=== PATIENT | female | born 2000 | race Caucasian/White ===

== ENCOUNTER 2018-07-30 15:45 | Emergency (ER) | payer OTHER, SELFPAY ==
[2018-07-30 16:18] VITALS: PULSE 120; RESP 2; TEMP 37; O2SAT 100
--- NOTE | 2018-07-30 16:51 | ED.GENADUL_ITS ---
Discharge Plan Disposition Patient Disposition: HOME Condition: Stable Discharge Details Chief Complaint: Sorethroat Clinical Impression: Acute streptococcal pharyngitis Primary Care Provider: Unknown,Unknown ED Provider: Anuja Bradley Home Meds and New Rx's Prescriptions: New amoxicillin 500 mg tablet 500 mg PO BID 10 Days Qty: 20 RF: 0 Discharge Instructions Instructions: Pharyngitis (ED), Strep Throat (ED) Additional Instructions: Alternate Tylenol and Motrin as needed and directed for pain. Drink plenty of fluids and get plenty of rest. Gargle with salt water. Follow-up with your primary care doctor next week for reevaluation. Return immediately to the emergency department with any worsening or new concerning symptoms. Discharge Data Discharge Physician: Anuja Bradley Medical Decision Making 18-year-old female presents with sore throat and left ear pain since last night, worse today. Denies known fever. Patient is on oral contraceptives. She denies chance of . She states her last menstrual period was 1 year ago. Heart rate tachycardic at 120, remainder vitals within normal limits. Afebrile. Patient appears nontoxic. Posterior pharynx erythematous, with exudates. Uvula midline. No peritonsillar abscess. No significant tonsillar swelling. \\ No drooling, no trismus, no lymphadenopathy, no submandibular swelling. Lungs clear to auscultation. Abdomen soft and nontender. Rapid strep positive. Patient offered antibiotic prescription versus Bicillin injection and she would prefer the antibiotic prescription. As it is Wednesday evening and pharmacies are closed, will give 1 dose of amoxicillin here as well as a dose for home and prescription. Due to the difficulty and pain with swallowing, will give a dose of Decadron here. Patient instructed to alternate Tylenol Motrin, drink plenty of fluids, get plenty of rest, follow with primary care doctor return here if worse. HPI General Mode of arrival: ambulatory . Date/Time Provider Initiated Documentation: 07/30/18 16:25 . Limitations to Documentation: no limitations . Information obtained by: patient . HPI Narrative: Patient is a 18-year-old female presents the ED with complaint of sore throat and left ear pain since last night, worse today. She admits to difficulty and pain with swallowing. She denies any known fever, vomiting, diarrhea, coughing or shortness of breath. Her last dose of Advil was 2 hours ago. Her last dose of Tylenol was this morning. Related Data Home Medications Medication Instructions Recorded Confirmed amoxicillin 500 mg PO BID 10 Days #20 tab 07/30/18 Previous Rx's Medication Instructions Recorded amoxicillin 500 mg PO BID 10 Days #20 tab 07/30/18 Allergies Allergy/AdvReac Type Severity Reaction Status Date / Time Sulfa (Sulfonamide Allergy Unverified 07/30/18 16:18 Antibiotics) General Stated Complaint: Sorethroat SAY: 4 Review of Systems Review of Systems All systems reviewed & are unremarkable except as noted in HPI and below Constitutional Reports as per HPI, Denies chills and Denies fever(s) Eyes Denies blurry vision ENT Denies dizziness, Reports otalgia, Reports sore throat and Denies throat swelling Cardiovascular Denies chest pain and Denies dyspnea Respiratory Denies cough and Denies dyspnea Gastrointestinal Denies abdominal pain, Denies diarrhea and Denies vomiting Genitourinary Denies hematuria and Denies dysuria Musculoskeletal Denies back pain and Denies numbness Integumentary/Breasts Denies lesions and Denies rash Neurologic Denies dizziness, Denies focal weakness and Denies numbness Allergic/Immunologic Denies throat swelling PFSH Medical History No significant past medical history (Acute) Surgical History H/O wisdom tooth extraction (Acute) H/O arthroscopic knee surgery (Chronic) Social History Smoking/Tobacco Use Status: Never Alcohol Intake: never Drug use: Never Do you feel safe at home: Yes Do you feel safe in your relationship?: Yes Exam Const General: cooperative and healthy appearing Orientation: alert and awake HENRI Head: normal to inspection Ears: hearing grossly normal bilaterally, external ears normal and TM's normal bilaterally General nose exam: external nose normal Face and sinus: normal facial exam and sinuses nontender Mouth: oral mucosae normal, no drooling and no trismus Teeth and gingiva: dentition normal Throat: uvula midline, no peritonsillar masses, posterior oropharynx abnormal edema, erythema and exudates and no uvular edema Eyes General: appearance normal, both eyes and all related structures Eyelids: eyelids normal EOM: EOM intact bilaterally Neck Neck: normal visual inspection Lymphatic: no lymphadenopathy noted Chest Chest: normal inspection of the chest Resp Effort & Inspection: normal respiratory effort and able to speak in complete sentences Auscultation: clear to auscultation bilaterally Cardio Rate: regular rate Rhythm: regular rhythm GI Inspection: normal to inspection Palpation: soft, not firm, no guarding, no hepatosplenomegaly, no masses and nontender Auscultation: normal bowel sounds Skin General skin exam: no rashes or lesions noted Neuro General: alert and awake Cognition: normal cognition Speech: speech normal Gait: normal gait Motor: muscle tone normal throughout Sensory Exam: no sensory deficits noted Extrem General: normal to inspection, full ROM, normal capillary refill and no edema Psych Appearance: grossly normal Mental Status: mental status grossly normal Speech and Movement: speech and movement normal Affect: normal affect Thought Process: normal Course Vital Signs Temperature 98.6 F 07/30/18 16:18 Pulse 120 H 07/30/18 16:18 Respiratory Rate 2 L 07/30/18 16:18 Pulse Oximetry 100 07/30/18 16:18 Temperature 98.6 F 07/30/18 16:18 Temperature Source Temporal Artery Scan 07/30/18 16:18 Pulse 120 H 07/30/18 16:18 Respiratory Rate 2 L 07/30/18 16:18 Respiratory Effort Non-Labored 07/30/18 16:18 Blood Pressure Position Sitting 07/30/18 16:18 Pulse Oximetry 100 07/30/18 16:18 Oxygen Delivery Method Room Air 07/30/18 16:18 Oxygen Flow Rate 0 07/30/18 16:18 Pain Level 7 07/30/18 16:18 Lab/Test Results Lab/Test Results: POC Strep Test-MILLA(Rapid) Start: 07/30/18 16:20 Freq: Status: Active Protocol: Document 07/30/18 16:31 TB (Rec: 07/30/18 16:31 TB [id number]) Strep test-MILLA(Rapid)-POC POC-Strep test-MILLA (Rapid) Positive POC-Strep test-MILLA (Rapid) Positive
[2018-07-30] MEDS: Dexamethasone 10 MG/ML VIAL PO (16:54)
[2018-07-30] MEDS: Amoxicillin 500 MG CAP PO ×2 (16:54)
[2018-07-30 16:59] VITALS: PULSE 114; RESP 18; O2SAT 100
== END 2018-07-30 16:59 | disposition home or self-care (01) ==
PROVIDERS: Emergency Provider Physician Assistant
DX: J02.0 Streptococcal pharyngitis (principal)
CPT/HCPCS: 87880; 99283; J1100

== ENCOUNTER 2019-02-24 20:53 | Outpatient (REF) | payer OTHER, SELFPAY ==
[2019-02-24 20:17] LABS: Bilirubin Negative (Negative); Blood Small (Negative); Clarity Sl Cloudy (Clear); Glucose Negative (Negative); Ketones 15 mg/dL (Negative); Leukocyte Esterase Negative (Negative); Nitrite Negative (Negative); Specific Gravity 1.025 (1.005-1.025); Urobilinogen 0.2 EU/dL (Up TO 0.2)
[2019-02-24 21:10] LABS: Bacteria Moderate HPF (Negative); C & S Indicated? Yes; Casts Negative LPF (Negative); Crystals Negative HPF (Negative); Epithelial Cells Few HPF (Negative); Mucus Negative (Negative); Other Cells Negative (Negative)
== END 2019-02-24 21:13 ==
LOC: LBN 20:53
PROVIDERS: Visit Provider Physician Assistant
DX: R30.0 Dysuria (principal)
CPT/HCPCS: 87077; 81003; 81015; 87086; 87186

== ENCOUNTER 2023-09-27 16:38 | Inpatient (IN) | payer MEDICAID, SELFPAY ==
[2023-09-27] VITALS (48 sets, daily range): BP systolic 68–163; BP diastolic 37–140; PULSE 111–156; RESP 3–30; TEMP 37.8–38.5; O2SAT 96–100
--- NOTE | 2023-09-27 17:00 | RT.EKG_ITS ---
APPROVED REPORT Exam: Resting ECG Reason for Exam: Tachycardia Patient Location: E HR:134 bpm ECG Measurements Heart Rate 134 AXIS MI 117 P 78 QRSd 78 QRS 81 QT 284 T -4 QTc 424 Conclusion Sinus tachycardia...rate> 99 sinus tachycardia, normal axis, normal intervals, S1Q3T3
--- NOTE | 2023-09-27 17:15 | DI.CT_ITS ---
Exam(s) CT CHEST PE CTA EXAM: CT CHEST PE CTA CLINICAL HISTORY: cough, tachycardia, exogenous estrogen. TECHNIQUE: Imaging Protocol: Axial CT angiography was performed with multi-slice acquisition and mu lti-planar and/or 3D reconstructions. CONTRAST MATERIAL: Intravenous: Omnipaque 350 contrast volume:65 mL COMPARISON: No exams were available for comparison FINDINGS: The examination is limited due to patient motion artifact. Tracheobronchial tree: Patent where visualized. There is internal debris seen in the bronchi in the a wendy of consolidation in the right lower lobe. Pulmonary parenchyma: There is a moderate size consolidation involving the right lower lobe. Airspac e opacities are also seen in the left upper lobe. No architectural distortion. Pulmonary Arteries: No evidence of filling defect to suggest pulmonary emboli. Mediastinum and Ratna: No dominant adenopathy or fluid collection. The esophagus is unremarkable. Th ere is soft tissue in the anterior mediastinum consistent with residual thymic tissue. Visualized thyroid gland: Unremarkable. Pleura: No effusion or pneumothorax. Heart: The heart is not dilated. No coronary artery calcifications are seen. No pericardial effusion. Aorta: Thoracic aorta non-dilated. No evidence of dissection. Upper abdomen: Unremarkable. Soft tissues: Unremarkable. Bones: Within normal limits for the patient's age. IMPRESSION: 1. No evidence of pulmonary embolism, thoracic aortic dissection or aneurysm. 2. Infiltrates involving the right lower lobe and left upper lobe suspicious for pneumonia. RADIATION DOSE DELIVERED: 375.38mGy.cm Total DLP DATA REPOSITORY: All CT scans at this facility are submitted to the National Radiology Data Registry (NRDR) Dose Index Registry (DIR) with the [employer] (A[employer]). RADIATION OPTIMIZATION: All CT scans at this facility use at least one of these dose optimization te chniques: automated exposure control; mA and/or kV adjustment per patient size (includes targeted exa ms where dose is matched to clinical indication); or iterative reconstruction.
--- NOTE | 2023-09-27 17:29 | ED.GENADUL_ITS ---
Discharge Plan Discharge Details Chief Complaint: RespSymp Primary Care Provider: Unknown,Unknown ED Provider: Paul Almeida Home Meds and New Rx's Prescriptions: No Action control HPI General Date/Time Provider Initiated Documentation: 09/27/23 16:49 . HPI Narrative: 23-year-old female presents with several days of fever productive cough chest t ightness and pain with deep breath, has had fevers as high as 103 at home intermittently improving with Tylenol and Motrin however never going below 101; worsening symptoms over the last day. Patient is on exogenous estrogen control, denies leg pain or swelling denies history of thromboembolic disease Related Data Home Medications Medication Instructions Recorded Confirmed control 09/27/23 Allergies Allergy/AdvReac Type Severity Reaction Status Date / Time Sulfa (Sulfonamide Allergy Skin Rash Verified 09/27/23 16:49 Antibiotics) General Stated Complaint: RespSymp SAY: 3 Review of Systems Narrative: Review of Systems Constitutional: Fatigue, fever Eyes: negative ENT: negative Cardiovascular: negative Respiratory: Cough Gastrointestinal: negative : negative Musculoskeletal: negative Skin: negative Neurologic: negative Psych: negative Exam Narrative Exam Narrative: Physical Examination General: alert, awake, cooperative, resting comfortably, no acute distress HEENT: normocephalic, atraumatic; PERRL, EOM intact, conjunctiva normal; no nasal discharge; moist mucous membranes, oral and pharyngeal mucosa normal, tolerating secretions Neck: supple, trachea midline; full ROM Chest: normal to inspection Respiratory: Tachypneic, speaking in full sentences, rhonchorous breath sounds mid and lower right lung field posteriorly Cardiac: Tachycardia, regular rhythm, S1S2 intact, no murmurs rubs or gallops GI: abdomen soft, non-tender, non-distended; no palpable mass or hepatosplenomegaly Skin: no lesions, rashes or trauma appreciated Neuro: AAOx3, normal speech, moving all extremities Extremities: No peripheral edema Psych: Appropriate mood and affect Course Vital Signs Vital signs: Vital Signs Temperature 38.5 C H 09/27/23 16:44 Pulse 156 H 09/27/23 16:44 Respiratory Rate 22 09/27/23 16:44 Blood Pressure 143/65 H 09/27/23 16:44 Pulse Oximetry 98 09/27/23 16:44 Temperature 38.5 C H 09/27/23 16:44 Temperature Source Temporal Artery Scan 09/27/23 16:44 Pulse 156 H 09/27/23 16:44 Respiratory Rate 22 09/27/23 16:44 Respiratory Effort Normal, Non-Labored 09/27/23 16:49 Blood Pressure 143/65 H 09/27/23 16:44 Blood Pressure Position Sitting 09/27/23 16:44 Pulse Oximetry 98 09/27/23 16:44 Oxygen Delivery Method Room Air 09/27/23 16:44 Oxygen Flow Rate 0 09/27/23 16:44 Pain Level 5 09/27/23 16:44 Lab/Test Results Lab/Test Results: 09/27/23 17:15 Blood Blood Culture - Pending 09/27/23 17:15 Blood Blood Culture - Pending Medical Decision Making 23-year-old female presents with shortness of breath productive cough chest congestion over the past several days as well as intermittent high-grade fever refractory to antipyretics, notably tachycardic on arrival fever 38.5 normotensive normoxic speaking full sentences however tachypneic rhonchorous breath sounds mid and inferior lung gil right side, no peripheral edema, patient is on exogenous estrogen no history of thromboembolic disease, sinus tachycardia on EKG with S1Q3T3 pattern. High clinical suspicion for bacterial pneumonia given fever productive cough shortness of breath however must also keep PE on differential given exogenous estrogen tachycardia and EKG findings. Will start empiric antibiotics ceftriaxone azithromycin, steroids nebulized albuterol, fluids, will draw blood cultures basic labs, will obtain CT chest. Disposition pending reassessment of patient if vital signs do not improve will need admission Quality:[facility] Health Related Social Needs: No Data to Display [facility] Medical History (Updated 07/30/18 @ 16:46 by Anuja Bradley DO) No significant past medical history Surgical History H/O wisdom tooth extraction H/O arthroscopic knee surgery Social History Smoking/Tobacco Use Status: Never Smoking risk assessment performed?: Yes Alcohol Intake: never Drug use: Never Do you feel safe at home: Yes Do you feel safe in your relationship?: Yes
[2023-09-27 18:05] LABS: Abs Immature Grans 0.14 10^3/uL (0.0-0.06); HGB 11.9 g/dL (11.2-15.7); MCHC 33.1 % (32.0-36.0); MCV 82 fL (80-95); MPV 9.2 fL (8.0-11.0); Platelet Count 240 10^3/uL (130-400); RBC 4.41 10^6/uL (3.93-5.22); RDW 12.6 % (11.7-14.6); RDW-SD 37.9 fL
[2023-09-27] MEDS: Albuterol 2.5 MG/3 ML INH SOLN VIAL UPD (18:07)
[2023-09-27] MEDS: cefTRIAXone 1 GM/50 ML BAG IVPB (18:08)
[2023-09-27] MEDS: Dexamethasone 10 MG/ML VIAL IVP (18:08)
[2023-09-27] MEDS: AZITHROMYCIN 500 MG in Normal Saline 250 ML 250 MG IVPB (18:10)
[2023-09-27] MEDS: Normal Saline 1,000 ML 1000 ML IV ×2 (18:11→20:40)
[2023-09-27 18:24] LABS: ALT 23 U/L (14-59); AST 17 U/L (15-37); Albumin 3.3 g/dL (3.4-5.0); Alkaline Phosphatase 67 U/L (46-116); Anion Gap 10.5 mmol/L (3-11); BUN 7 mg/dL (7-18); Bilirubin, Total 0.5 mg/dL (0.2-1.0); CO2 20.5 mmol/L (21.0-32.0); Calcium 8.7 mg/dL (8.5-10.1); Chloride 102 mmol/L (98-107); Estimated GFR 80.18 (mL/min/1.73m2); Glucose 197 mg/dL (74-106); Potassium 3.3 mmol/L (3.5-5.1); Sodium 133 mmol/L (136-145); Total Protein 7.4 g/dL (6.4-8.2)
[2023-09-27 18:30] LABS: HCG Quant, Pregnancy 1 mIU/mL (1-3)
[2023-09-27 18:32] LABS: Absolute Lymphocyte Count 1.11 10^3/uL (1.2-3.4); Absolute Monocyte Count 0.47 10^3/uL (0.1-0.8); Absolute Neutrophil Count 14.06 10^3/uL (1.2-6.7); Bands % 19 %; Diff Comment Manual Differential; Metamyelocytes % 1; RBC Morphology Normal
[2023-09-27] MEDS: Omnipaque 350 MG/ML 100 ML BTL IJ (19:22)
[2023-09-27] MEDS: Normal Saline Flush 10 ML SYR IVP (19:23)
[2023-09-27] MEDS: Normal Saline - Diluent 50 ML VIAL IJ (19:24)
[2023-09-27 20:27] LABS: COVID-19 PCR Negative (Negative); Influenza A PCR Negative (Negative); Influenza B PCR Negative (Negative); RSV PCR Negative (Negative)
[2023-09-27 20:29] LABS: Source NASOPHARYNX
--- NOTE | 2023-09-27 20:37 | DI.VRAD_ITS ---
PROCEDURE INFORMATION: Exam: CTA Chest With Contrast Exam date and time: 09/27/2023 7:28 PM Age: 23 years old Clinical indication: Cough and other: Tachycardia; Patient HX: Cough, tachycardia, exogenous estrogen TECHNIQUE: Imaging protocol: Computed tomographic angiography of the chest with contrast. Exam focused on the arteries. 3D rendering (Not supervised by radiologist): MIP and/or 3D reconstructed images were created by the technologist. Radiation optimization: All CT scans at this facility use at least one of these dose optimization techniques: automated exposure control; mA and/or kV adjustment per patient size (includes targeted exams where dose is matched to clinical indication); or iterative reconstruction. Contrast material: OMNIPAQUE 350; Contrast volume: 65 ml; Contrast route: INTRAVENOUS (IV); COMPARISON: No relevant prior studies available. FINDINGS: Pulmonary arteries: No pulmonary embolism. Aorta: No aneurysm. No dissection. No stenosis in the thoracic aorta. Lungs: A dense consolidation is present in the right lower lobe, primarily in the posterior basilar segment. The left lung is clear. The lung architecture is normal. There is no significant central endobronchial mucus. Bronchi are opacified and obstructed in the consolidation. Pleural spaces: No pleural effusion. No pneumothorax. Heart: No cardiomegaly. No pericardial effusion. No coronary artery calcifications. Lymph nodes: Unremarkable. No enlarged lymph nodes. Bones/joints: No compression fractures. No endplate erosions. No anterolisthesis or retrolisthesis. No significant disc space narrowing. Soft tissues: Unremarkable. IMPRESSION: 1. Right lower lobe consolidation, suspicious for pneumonia. 2. No pulmonary embolism. 3. No aortic dissection. Dictated and Authenticated by: Albaro Molina MD. Ordering:BROOK Miller MD
--- NOTE | 2023-09-27 21:33 | W.PM.HP.N ---
Date of service: 09/27/23 Time of Service: 21:33 Assessment and Plan Assessment and plan (1) Community acquired bacterial pneumonia: Status: Acute Assessment and plan: Despite young age, patient has some severe features on presentation with high fever, tachypnia with some respiratory distress, tachycardia. Given this, I agree with admission for observation and IV fluids and antibiotics. - continue ceftriaxone and azithromycin - will not continue steroids as no history of asthma (2) Hypokalemia: Status: Acute Assessment and plan: replace orally, recheck with mg in the morning (3) Hyponatremia: Status: Acute Assessment and plan: mild, secondary to acute lung infection and some dehydration (4) Hyperglycemia, unspecified: Status: Acute Assessment and plan: In setting of acute illness, consider a1c if glucose high on morning labs. (5) Engages in vaping: Status: Acute Assessment and plan: I don't think this is EVALI but vaping likely increased risk of pneumonia. Discussed cessation, declines NRT. (6) DVT prophylaxis: Status: Acute Assessment and plan: Not indicated (christie risk score 1 for hormones), encourage ambulation History of Present Illness History of Present Illness Chief Complaint: cough, SOB, fever Narrative: 23 yo previously healthy female who presented with fever to 103 today in the setting of 3 days of progressive cough and shortness of breath. Evaluated in express care, and sent to ED for IV hydration. started with cough and some sore throat, slight hoarseness. Got more into chest today with high fevers that didn't come down with tylenol and ibuprofen. She was nauseous but did not vomit. No diarrhea. Feels better with hydration and medicine in the ED. Cough mildly productive of sputum. She had exercise induced asthma as a child, none since. No sick contacts Review of Systems All systems reviewed & are unremarkable except as noted in HPI and below PFSH All Active Problems Engages in vaping (Acute) DVT prophylaxis (Acute) Hyperglycemia, unspecified (Acute) Hyponatremia (Acute) Hypokalemia (Acute) Community acquired bacterial pneumonia (Acute) Medical History No significant past medical history Surgical History H/O wisdom tooth extraction H/O arthroscopic knee surgery Social History Smoking/Tobacco Use Status: Current every day Tobacco Type: e-cigarettes Smoking risk assessment performed?: Yes Alcohol Intake: never Drug use: Never Housing: apartment Do you feel safe at home: Yes Do you feel safe in your relationship?: Yes Additional Social history: Grew up in [place], came to [place] for college and stayed. Works as retail salesperson at [employer] Allergies and Home Medications Allergies Allergy/AdvReac Type Severity Reaction Status Date / Time Sulfa (Sulfonamide Allergy Skin Rash Verified 09/27/23 16:49 Antibiotics) Home Medications Medication Instructions Recorded Confirmed Type control 09/27/23 History Exam Narrative Exam Narrative: GEN: Alert and oriented, pleasant and cooperative, gives linear history. No acute distress at rest. HEENT: Head atraumatic. Conjunctiva clear, no icterus. PEERL, EOMI. no rhinorrhea. MMM, OP mildly red but no exudate. Neck is supple with no masses or lymphadenopathy, trachea midline LUNGS: CTAB with normal effort. no wheezing or rales CV: RRR with no murmurs, gallops, or rubs. ABD: +BS, soft, NT/ND EXT: no cyanosis, clubbing, or edema MSK: No joint redness or swelling NEURO: CN 2-12 grossly intact. Normal movement of 4 extremities. Normal speech and coordination SKIN: No rashes or open wounds. PSYCH: normal mood and affect Results Imaging CT scan - chest: report reviewed (1. Right lower lobe consolidation, suspicious for pneumonia. 2. No pulmonary embolism. 3. No aortic dissection. ) EKG: report reviewed and image reviewed (sinus tachycardia, nl axis, intervals. No ischemic ST changes) Labs 09/27/23 17:43 09/27/23 17:43 Labs: Laboratory Results - last 24 hr 09/27/23 09/27/23 17:43 19:38 WBC 15.80 H RBC 4.41 Hgb 11.9 Hct 36.0 MCV 82 MCH 27.0 MCHC 33.1 RDW 12.6 Plt Count 240 MPV 9.2 Immature Gran % See Differential Neutrophils % 70.0 Band Neutrophils % 19 Lymphocytes % 7.0 Monocytes % 3.0 Eosinophils % 0.0 Basophils % 0.0 Metamyelocytes % 1 Nucleated RBC % 0.0 Absolute Neutrophils 14.06 H Absolute Lymphocytes 1.11 L Absolute Monocytes 0.47 Absolute Eosinophils 0.00 Absolute Basophils 0.00 RBC Morphology Normal Sodium 133 L Potassium 3.3 L Chloride 102 Carbon Dioxide 20.5 L Anion Gap 10.5 BUN 7 Creatinine 1.0 Est GFR (CKD-EPI 2020) 80.18 Glucose 197 H Calcium 8.7 Total Bilirubin 0.5 AST 17 ALT 23 Alkaline Phosphatase 67 Total Protein 7.4 Albumin 3.3 L Beta HCG, Quant 1 COVID-19 Source NASOPHARYNX SARS-CoV-2 (PCR) Negative Influenza Type A (PCR) Negative Influenza Type B (PCR) Negative RSV (PCR) Negative Last Vital Signs Temp 38.1 C H 09/27/23 17:48 Pulse 114 H 09/27/23 21:18 Resp 25 H 09/27/23 21:10 BP 106/57 L 09/27/23 21:18 Pulse Ox 99 09/27/23 21:18 Time Spent Time spent with Patient: 55-74 minutes Time was spent: preparing to see the patient(eg.review tests), obtaining and/or reviewing separately otained hiistory, ordering medications,tests, procedures, referring, communicating with other health healthcare management consultant, indepentently interpreting results, counseling the patient and care coordination
[2023-09-28 07:25] LABS: HCT 36.7 % (36.0-46.0); MCH 26.8 pg (27.0-33.0); MCHC 32.7 % (32.0-36.0); MCV 82 fL (80-95); MPV 9.8 fL (8.0-11.0); Platelet Count 254 10^3/uL (130-400); RBC 4.48 10^6/uL (3.93-5.22); RDW-SD 38.9 fL; WBC 19.02 10^3/uL (4.4-10.8)
[2023-09-28 07:31] VITALS: BP 101/70; PULSE 86; RESP 17; TEMP 36.8; O2SAT 98
[2023-09-28 07:45] LABS: Anion Gap 12.9 mmol/L (3-11); BUN 5 mg/dL (7-18); CO2 18.1 mmol/L (21.0-32.0); CREATININE 0.6 mg/dL (0.55-1.02); Calcium 8.9 mg/dL (8.5-10.1); Chloride 107 mmol/L (98-107); Estimated GFR 127.67 (mL/min/1.73m2); Glucose 145 mg/dL (74-106); Potassium 4.2 mmol/L (3.5-5.1); Sodium 138 mmol/L (136-145)
[2023-09-28 08:11] LABS: Absolute Lymphocyte Count 1.14 10^3/uL (1.2-3.4); Absolute Monocyte Count 0.57 10^3/uL (0.1-0.8); Absolute Neutrophil Count 17.31 10^3/uL (1.2-6.7); Atypical Lymphocytes % 1 %; Bands % 14 %; Diff Comment Manual Differential; RBC Morphology Normal
[2023-09-28] MEDS: Normal Saline Flush 10 ML SYR IVP (09:09)
--- NOTE | 2023-09-28 14:15 | CHAPLAIN ---
Judith was sitting up in bed when I visited. She was pleasant and easily engaged in a conversation. She said she's feeling much better after feeling terrible yesterday. She believes she'll be discharged this afternoon.
[2023-09-28 14:59] LABS: Anion Gap 10.8 mmol/L (3-11); BUN 8 mg/dL (7-18); CO2 20.2 mmol/L (21.0-32.0); CREATININE 0.9 mg/dL (0.55-1.02); Calcium 8.8 mg/dL (8.5-10.1); Chloride 105 mmol/L (98-107); Estimated GFR 90.98 (mL/min/1.73m2); Glucose 224 mg/dL (74-106); Potassium 4.1 mmol/L (3.5-5.1); Sodium 136 mmol/L (136-145)
[2023-09-28 15:07] VITALS: BP 103/71; PULSE 88; RESP 20; TEMP 36.5; O2SAT 98
--- NOTE | 2023-09-28 15:25 | W.PM.DS.N ---
Date of service: 09/28/23 Time of Service: 15:25 DS: Diagnosis Discharge Diagnosis (1) Community acquired bacterial pneumonia: Status: Acute Asessment and Plan: CT chest w/ infiltratesRLL and MERNA, admitted w/ leukocytosis of 15,000 and vernell to 19,000, not hypoxemic, fever to 38.5 on admission and now afebrile at time of her discharge. Patient feeling markedly better, not requiring any supplemental oxygen. Patient treated w/ Ceftriaxone and azithromycin on admission and discharged home on 5 more days of azithromcyin 250 mg daily along w/ cefpodoxime 200 mg bid and albuterol HFA 2 puffs qid prn. Patient should have follow up CXR in 2 to 3 weeks to ensure resolution of her pneumonic consolidations. Patient is advised to quit vaping. (2) Hypokalemia: Status: Resolved Asessment and Plan: treated w/ iv and oral potassium. K 3.3 on admission and resolved to 4.2 at time of her discharge. (3) Hyponatremia: Status: Resolved Asessment and Plan: Na 133 on admission and resolved to 136. (4) Hyperglycemia, unspecified: Status: Acute Asessment and Plan: glucose 197 on admission labs and repeat level was 145 mg/dL fasting and 224 in the afternoon. glycohemoglobin A1C drawn and results are pending. (5) Engages in vaping: Status: Chronic Discharge Plan Disposition Patient Disposition: Home Condition: Improving Discharge Details Reason For Visit: Pneumonia Admit Date/Time: 09/27/23 19:56 Admit Provider: Jesse Castaneda Attending Provider: Jesse Castaneda Primary Care Provider: Unknown,Unknown Hospital Course Hospital Course: 23 yr old female who vapes presented w/ symptoms of fever 103 and progressive cough of purulent sputum and dyspnea. Symptoms progressed over [address] chest demonstrated infiltrates in RLL and MERNA, WBC 15,800, hypokalemiaK 3.3. She was not hyoxic but was tachypneic RR 30 and tachycardic 120 bpm. Blood cultures were obtained and results are pending at this time, although I called micro and as of the time of her discharge nothing had grown. Sputum culture demonstrated normal oral prachi. Patient was begun on Ceftriaxone and azithromycin. She was given iv fluids and her hypokalemia was corrected. Glucose was elevated at 197 on admission but came down to 145. Home Meds and New Rx's Prescriptions: New cefpodoxime 200 mg tablet 200 mg PO BID Qty: 10 0RF Rx Instructions: must administer with a meal/food albuterol sulfate 90 mcg/actuation HFA aerosol inhaler 2 puff inhalation QID PRNQty: 8.5 0RF azithromycin 250 mg tablet 250 mg PO DAILY 5 Days Qty: 5 0RF No Action control Discharge Instructions Instructions: Bacterial Pneumonia (DC) Additional Instructions: You were treated for community aquired pneumonia and given intravenous antibiotics including ceftriaxone and azithromycin. You are being discharged home on 5 more days of oral antibiotics including cefpodoxime and azithromycin. You have also been found to have high blood glucose levels in the low 200's (normal fasting is under 110). A glycohemoglobin A1C level was drawn but was not back at the time of your discharge. It is recommended you follow up w/ your primary care provider in the next week. You may have diabetes mellitus and may need to go on medications to treat this. Stand Alone Forms: Nursing Discharge Form Referrals: Zach Arredondo ADDRESSOGRAPH OPERATOR [NURSE PRACTITIONER] - 10/07/23 2:20 am (With Ynes) Activity:: Activity as Tolerated Equipment/Supplies:: No Equipment Needed Diet:: Normal Diet Discharge Orders Discharge Orders: Discharge Order (Routine); Ordered 09/28/23 Ordered By: Mustapha Cavanaugh DS: Summary Time Spent with Patient providing and/or coordinating discharge services: Greater than 30 minutes Specific discharge activities: Professional time spent interviewing and examining patient, discussion of goals of care with hospital team (care management, nursing and consulting professionals) was 35 minutes. Status at Discharge Functional status at discharge: independent ambulation Overall status at discharge: patient is progressing back to baseline Mental Status: mental status grossly normal Speech and Movement: speech and movement normal Mood: congruent mood Affect: normal affect Quality:SDOH Health Related Social Needs: Health related social needs inadequate housing Exam Narrative Exam Narrative: Young white female sitting up in bed, alert and oriented, no acute distress, says she feels markedly better than yesterday. Coughing up yellowish mucous w/ some pink tinge to this (although did not produce sputum for me at the time of my visit) She would like to return home. She is not requiring any supplemental oxygen Lungs: some bibasilar wheezing w/ end expiration, no rhonchi or rales Heart: RRR, no murmur or rub or gallop Psych Mental Status: mental status grossly normal Speech and Movement: speech and movement normal Mood: congruent mood Affect: normal affect DS: Data Vitals/I&O Vitals and I&O: Vital Signs Temperature 36.5 C 09/28/23 15:07 Temperature Source Temporal Artery Scan 09/28/23 15:07 Pulse 88 09/28/23 15:07 Pulse Rhythm Regular 09/28/23 09:15 Pulse 112 H 09/27/23 21:10 Respiratory Rate 20 09/28/23 15:07 Respiratory Effort Normal 09/28/23 09:15 Respiratory Depth Normal 09/28/23 09:15 Respiratory Pattern Normal 09/28/23 09:15 Blood Pressure 103/71 09/28/23 15:07 Blood Pressure Mean 71 09/27/23 21:18 Blood Pressure Position Sitting 09/27/23 16:44 Pulse Oximetry 98 09/28/23 15:07 Oxygen Delivery Method Room Air 09/28/23 15:07 Oxygen Flow Rate 0 09/28/23 15:07 Pain Level 2 09/28/23 15:07 Comment nurse put vitals in his nursing assessement 09/28/23 03:48 Intake & Output 09/27/23 09/28/23 09/28/23 23:59 11:59 23:59 Intake Total 4501 / 4501 420 / 660 240 / 660 Balance 4501 / 4501 420 / 660 240 / 660 Weight 68.901 kg 68 kg Intake: IV 2300 / 2300 Oral 2201 / 2201 420 / 660 240 / 660 Other: Comment pt states she has been up to the bathroom this morning Voiding Methods Toilet Data Completed and Pending Pending studies at discharge: Glycohemoglobin A1C Labs on day of discharge: Labs from last 24 hours 09/28/23 09/28/23 09/27/23 14:31 06:28 19:38 WBC 19.02 H RBC 4.48 Hgb 12.0 Hct 36.7 MCV 82 MCH 26.8 L MCHC 32.7 RDW 13.0 Plt Count 254 MPV 9.8 Immature Gran % 0.0 Neutrophils % 77.0 Band Neutrophils % 14 Lymphocytes % 5.0 Atypical Lymphs % 1 Monocytes % 3.0 Eosinophils % 0.0 Basophils % 0.0 Metamyelocytes % Nucleated RBC % 0.0 Absolute Neutrophils 17.31 H Absolute Lymphocytes 1.14 L Absolute Monocytes 0.57 Absolute Eosinophils 0.00 Absolute Basophils 0.00 RBC Morphology Normal Sodium 136 138 Potassium 4.1 4.2 Chloride 105 107 Carbon Dioxide 20.2 L 18.1 L Anion Gap 10.8 12.9 H BUN 8 5 L Creatinine 0.9 0.6 Est GFR (CKD-EPI 2020) 90.98 127.67 Glucose 224 H 145 H Hemoglobin A1c Pending Calcium 8.8 8.9 Magnesium 2.0 Total Bilirubin AST ALT Alkaline Phosphatase Total Protein Albumin Beta HCG, Quant COVID-19 Source NASOPHARYNX SARS-CoV-2 (PCR) Negative Influenza Type A (PCR) Negative Influenza Type B (PCR) Negative RSV (PCR) Negative 09/27/23 17:43 WBC 15.80 H RBC 4.41 Hgb 11.9 Hct 36.0 MCV 82 MCH 27.0 MCHC 33.1 RDW 12.6 Plt Count 240 MPV 9.2 Immature Gran % See Differential Neutrophils % 70.0 Band Neutrophils % 19 Lymphocytes % 7.0 Atypical Lymphs % Monocytes % 3.0 Eosinophils % 0.0 Basophils % 0.0 Metamyelocytes % 1 Nucleated RBC % 0.0 Absolute Neutrophils 14.06 H Absolute Lymphocytes 1.11 L Absolute Monocytes 0.47 Absolute Eosinophils 0.00 Absolute Basophils 0.00 RBC Morphology Normal Sodium 133 L Potassium 3.3 L Chloride 102 Carbon Dioxide 20.5 L Anion Gap 10.5 BUN 7 Creatinine 1.0 Est GFR (CKD-EPI 2020) 80.18 Glucose 197 H Hemoglobin A1c Calcium 8.7 Magnesium Total Bilirubin 0.5 AST 17 ALT 23 Alkaline Phosphatase 67 Total Protein 7.4 Albumin 3.3 L Beta HCG, Quant 1 COVID-19 Source SARS-CoV-2 (PCR) Influenza Type A (PCR) Influenza Type B (PCR) RSV (PCR) 09/27/23 17:30 Blood Blood Culture - Pending 09/27/23 17:43 Blood Blood Culture - Pending Preliminary micro results at discharge 09/27/23 23:00 Sputum Culture - Preliminary Sputum Normal Prachi 09/27/23 17:30 Blood Culture - Pending Blood 09/27/23 17:43 Blood Culture - Pending Blood PFSH All Active Problems (Updated 09/28/23 @ 15:29 by Mustapha Cavanaugh MD) Engages in vaping (Chronic) DVT prophylaxis (Acute) Hyperglycemia, unspecified (Acute) Community acquired bacterial pneumonia (Acute) Medical History No significant past medical history Surgical History H/O wisdom tooth extraction H/O arthroscopic knee surgery Social History Smoking/Tobacco Use Status: Current every day Tobacco Type: e-cigarettes Smoking risk assessment performed?: Yes Alcohol Intake: never Drug use: Never Housing: apartment Do you feel safe at home: Yes Do you feel safe in your relationship?: Yes Additional Social history: Grew up in [place], came to [place] for college and stayed. Works as seasonal retail merchandiser at [employer] Time Spent with Patient Time Spent with Patient: <45 minutes Time was spent: preparing to see the patient(eg.review tests), obtaining and/or reviewing separately otained hiistory, ordering medications,tests, procedures, referring, communicating with other health ostomy care nurse, indepentently interpreting results, counseling the patient and care coordination
[2023-09-28 15:27] LABS: Hemoglobin A1C 5.3 % (<5.7)
[2023-09-28 15:41] LABS: Bilirubin Negative (Negative); Blood Small (Negative); Clarity Clear (Clear); Glucose 500 mg/dL (Negative); Ketones Negative (Negative); Leukocyte Esterase Negative (Negative); Nitrite Negative (Negative); Specific Gravity 1.015 (1.005-1.025); Urobilinogen 0.2 mg/dL (Up to 0.2)
[2023-09-28 16:03] LABS: Bacteria Rare HPF (Negative); C & S Indicated? No/Sq. Contamination; Casts Negative LPF (Negative); Crystals Negative HPF (Negative); Epithelial Cells Moderate HPF (Negative); Mucus Negative (Negative); RBC 0-2 HPF (0-2); WBC 0-2 HPF (0-5)
--- NOTE | 2023-09-28 16:43 | INITIAL_ITS ---
Date of service: 09/28/23 Time of Service: 16:44 Care Management Initial Assmt Initial Assessment Reason for Hospitalization: Pneumonia Functional Status/Living Situation Patient Presentation: Judith was sitting up in her bed visiting with her boyfriend when CM met with her. She was pleasant and engaged well in conversation. She stated that she is feeling better today, and that per [place], she is being discharged home. She reported that she is independent at baseline, and does not require any services at this time. Her boyfriend will drive her home when ready. 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[employer]) Instrumental Activities of Daily Living (ADLs): Independent Medications Medication Management: No Issues/Barriers identified Advance Directives Advance Directives: Do you have an Advance Directive: N 07/30/18 15:50 AD On File at [facility]: N 07/30/18 15:50 Date Asked 09/27/23 09/27/23 16:43 AD Date Reviewed COLST On File at [facility] COLST Date Scanned Code Status Resuscitation Status Full Code Insurance Coverage/Financial Issues Insurance: [facility] Care Team Visit Care Team Role Provider Type Unknown Unknown Primary Care Provider STAFF PHYSICIAN Paul Almeida MD Emergency Provider [facility] STAFF PHYSICIAN Jeses Castaneda Admit Provider [facility] STAFF PHYSICIAN Attending Provider Discharge Potential Discharge Needs: PCP F/U Appt (will need appointment with personnel associate provider; no PCP listed) Anticipated Barriers to Discharge: None Identified Patient/Family Education Needs: Review discharge instructions, discuss Ask Me Three Transportation: Private vehicle (by friend) Plan: Anticipate Judith will return home once medically cleared. Her s/o will drive her home via private vehicle. She will follow up with her PCP and discharge plan of care. CM will continue to follow. PFSH All Active Problems (Updated 09/28/23 @ 15:29 by Mustapha Cavanaugh MD) Engages in vaping (Chronic) DVT prophylaxis (Acute) Hyperglycemia, unspecified (Acute) Community acquired bacterial pneumonia (Acute) Medical History No significant past medical history Surgical History H/O wisdom tooth extraction H/O arthroscopic knee surgery Social History Smoking/Tobacco Use Status: Current every day Tobacco Type: e-cigarettes Smoking risk assessment performed?: Yes Alcohol Intake: never Drug use: Never Housing: apartment Do you feel safe at home: Yes Do you feel safe in your relationship?: Yes Additional Social history: Grew up in [place], came to [place] for college and stayed. 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
--- NOTE | 2023-09-28 16:47 | CMDISCH_ITS ---
Date of service: 09/28/23 Time of Service: 16:48 LACE Index Scoring Tool Questions: Length of Stay (in days): 1 Was the patient admitted via the E.D.?: Yes E.D. Visits: 0 Answers: Total Score: 4 Risk of Readmission: Low Risk Care Management Discharge Plan Reason for Hospitalization: pneumonia Discharge Plan: Judith will return home with no new services. She will be driven home via private vehicle by a friend. She will follow up with her PCP and [facility] plan of care. She is happy to be going home, and reports feeling that she is ready for discharge. Patient/Family Education Needs: Review discharge instructions and limitations, discussion of self care needs including ask me three. SDOH Health Related Social Needs: Health related social needs inadequate housing Health related social needs: inadequate housing(Z59.1)
== END 2023-09-28 17:11 | disposition home or self-care (01) | DRG 194 ==
LOC: ER 17:02 → MS 21:33
PROVIDERS: Internal Medicine; Admitting Provider Family Medicine; Emergency Provider Emergency Medicine; Visit Provider Family Medicine
DX: J15.9 Unspecified bacterial pneumonia (principal); E87.1 Hypo-osmolality and hyponatremia; E87.6 Hypokalemia; R73.9 Hyperglycemia, unspecified; F17.290 Nicotine dependence, other tobacco product, uncomplicated
CPT/HCPCS: 00123; 36415; 71275; 80048; 80053; 81025; 87040; 87637; 93005; 94640; 96361; 96365; 96368; 96375; 99285; 81003; 81015; 83036; 83735; 84702; 85025; 87070; 87205; 93010; 99222; 99238; J0456; J0696; J1100; J3490; J7613

== ENCOUNTER 2024-06-16 18:52 | Emergency (ER) | payer MEDICAID, SELFPAY ==
[2024-06-16 18:57] VITALS: BP 150/98; PULSE 80; RESP 20; TEMP 36.9; O2SAT 100
--- NOTE | 2024-06-16 19:08 | ED.GENADUL_ITS ---
Discharge Plan Disposition Patient Disposition: Home Condition: Stable Discharge Details Clinical Impression: Rotator cuff arthropathy of left shoulder Primary Care Provider: Unknown,Unknown ED Provider: Nathaniel Price Home Meds and New Rx's Prescriptions: New ketorolac 10 mg tablet 10 mg PO QID PRN5 Days Qty: 19 0RF Rx Instructions: maximum total duration of 5 days from all oral, intranasal, or parenteral formulations Continued control See Rx Instructions .ROUTE .COMPLEX Rx Instructions: 1 tab daily albuterol sulfate 90 mcg/actuation HFA aerosol inhaler 2 puff inhalation QID PRNQty: 8.5 0RF Discharge Instructions Instructions: Rotator cuff injury, Ketorolac (Systemic) Additional Instructions: You were seen in the emergency department for the rotator cuff injury of your left shoulder, please use the sling for comfort but remove the sling and perform pendulum exercises frequently throughout the day. Please use therapeutic dosing of Tylenol (acetamenophen) & Advil (ibuprofen) in an alternating fashion as follows: Take 1000mg of Tylenol every 6 hours without missing doses- that is 4 times per day. Use the prescribed ketorolac instead of ibuprofen for the first 5 days and then switch to ibuprofen/Advil dosing as below [place] in between the Tylenol dosings, take 400-600mg of Advil also on a 6 hour schedule, that is also 4 times per day. The daily maximum dosing of Tylenol is 4000mg, and the daily maximum dosing of Advil is 2400mg. This is safe to do for weeks. Please note that some common cold medications & prescription pain medications may contain acetamenophen and you need to read OTC drug labels and factor that in to maximum daily dosings. Follow-up with orthopedics for specialist evaluation and possible MRI. Please return to the emergency department for any severe increase in pain, complete numbness and coolness in extreme pain to left arm. Referrals: [facility] [Provider Group] Discharge Data Discharge Date/Time-TO BE ENTERED AT DEPARTURE: 06/16/24 20:27 HPI General Date/Time Provider Initiated Documentation: 06/16/24 18:56 . HPI Narrative: 24 year-old female presents to ED today by POV/ambulating with a chief complaint of L shoulder injury- suffered while attempting to teach her dog how to ski-cheng in their driveway last night. Quality described as falling onto raised arm, hearing popping or crunching, now having reduced ROM. Patient is R-hand dominant, no radiation to numbness/tingling, deformity, skin tenting to clavicle, headstrike/LOC, nausea/vomiting. Severity is described as severe. Palliating factors include nothing specific. Provoking factors include movement. Events leading up to the incident/Associated Symptoms: Patient denies prior history to L shoulder. Patient not anticoagulated. Related Data Home Medications ?Medication ?Instructions ?Recorded ?Confirmed control See Rx Instructions .Route .COMPLEX 09/27/23 06/16/24 albuterol sulfate 90 mcg/actuation 2 puff inhalation QID PRN #8.5 09/28/23 06/16/24 aerosol inhaler grams ketorolac 10 mg tablet 10 mg PO QID PRN 5 days #19 tabs 06/16/24 Previous Rx's ?Medication ?Instructions ?Recorded albuterol sulfate 90 mcg/actuation 2 puff inhalation QID PRN #8.5 09/28/23 aerosol inhaler grams ketorolac 10 mg tablet 10 mg PO QID PRN 5 days #19 tabs 06/16/24 Allergies Allergy/AdvReac Type Severity Reaction Status Date / Time Sulfa (Sulfonamide Allergy Skin Rash Verified 06/16/24 20:25 Antibiotics) General Stated Complaint: Orthopedic SAY: 3 Review of Systems All systems reviewed & are unremarkable except as noted in HPI and below Exam Narrative Exam Narrative: GENERAL APPEARANCE: Well-nourished, non-toxic, awake and alert, atraumatic, no acute distress. SKIN: Warm, pink, dry, intact, without rashes/lesions/ulcerations. HEAD: Normocephalic, atraumatic, normal hair distribution for gender/age. EYES: Normal conjunctiva, no exudates on lids/lashes. ENT: Nares patent, no circumoral cyanosis, no facial swelling NECK: Supple, trachea midline, painless cervical ROM. LUNGS/CHEST: Non-labored respirations, normal A/P diameter, symmetrical expa nsion, no chest wall deformity HEART (CV/PV): Regular rate, L radial pulse 2+, no peripheral edema, no JVD. ABDOMEN: Soft, non-distended, no guarding. MSK: Normal ROM, no swelling/deformity to bilateral UEs or LEs, moving all extremities without weakness, no cyanosis, spine midline without tenderness, normal curvature, severe limits to range of motion to the left upper extremity, tenderness diffusely around the shoulder without crepitus or severe swelling, no skin tenting to clavicle, no significant right wrist full displacement of distal clavicle, left radial pulse 2+, brisk capillary refill and sensation intact in the hand with management trainee marketing strength 5/5, no elbow or forearm tenderness or crepitus, unable to participate in special tests of rotator cuff due to ROM decrease NEURO: Mental Status AAOx4 - alert to person, place, time, events No facial droop, no forehead involvement. Motor: No focal weakness Sensory: sensation intact to light touch globally. Gait normal: patient ambulated without ataxia into ED room. PSYCH: euthymic, cooperative, pleasant, appropriate speech Course Vital Signs Vital signs: Vital Signs Temperature 36.9 C 06/16/24 18:57 Pulse 80 06/16/24 18:57 Respiratory Rate 20 06/16/24 18:57 Blood Pressure 150/98 H 06/16/24 18:57 Pulse Oximetry 100 06/16/24 18:57 Temperature 36.9 C 06/16/24 18:57 Temperature Source Temporal Artery Scan 06/16/24 18:57 Pulse 80 06/16/24 18:57 Respiratory Rate 20 06/16/24 18:57 Blood Pressure 150/98 H 06/16/24 18:57 Blood Pressure Position Sitting 06/16/24 18:57 Pulse Oximetry 100 06/16/24 18:57 Oxygen Delivery Method Room Air 06/16/24 18:57 Oxygen Flow Rate 0 06/16/24 18:57 Pain Level 6 06/16/24 19:01 Comment 8/10 when moving shoulder. 06/16/24 18:57 Medical Decision Making This dictation utilizes [id number]-afjo dictation software and may contain unedited grammatical errors. 24 year-old female presents to ED today by POV/ambulating with a chief complaint of L shoulder injury- suffered while attempting to teach her dog how to ski-cheng in their driveway last night. Quality described as falling onto raised arm, hearing popping or crunching, now having reduced ROM. Patient is R-hand dominant, no radiation to numbness/tingling, deformity, skin tenting to clavic le, headstrike/LOC, nausea/vomiting. Severity is described as severe. Palliating factors include nothing specific. Provoking factors include movement. Events leading up to the incident/Associated Symptoms: Patient denies prior history to L shoulder. Patients' medical history: Noncontributory. Family and social history: Noncontributory. Pertinent exam findings / vital signs include left shoulder range of motion severely diminished only about 10 degrees of abduction, cannot fully extend shoulder out in front of her to straighten elbow for Speed's Test, no clavicular crepitus, swelling or deformity, no scapular tenderness, no midline cervical tenderness, left radial pulse 2+, management trainee marketing strength 5/5, sensation intact, brisk capillary refill in fingers. Differential / pathologies of concern include Rotator Cuff Arthropathy, A/C Separation, Fracture, Labral Tear. Diagnostic studies of: -XR L Shoulder - question AC separation. Interventions of: -Counseled on APAP/NSAIDs, Pendulum Exercises, RICE Therapy. ED Course/Assessment/Plan: 24-year-old female was wearing had a ski-cheng with her dog in her driveway and crashed on her snowboard with outstretched arm, has likely rotator cuff patho logy, no fracture seen on [id number] on orthopedic follow-up list, recommend RICE therapy therapeutic dosing Tylenol and ketorolac sent, strict return for signs of neurovascular compromise. Findings not consistent with fracture, neurovascular compromise. Disposition of Rotator Cuff Arthropathy of Left Shoulder. Patient verbalized understanding of the plan and return to ED criteria and enga ged in shared decision making. Medical Records Medical records reviewed: Yes I reviewed the patient's medical records. Imaging Data Radiologic Study: Attestation: I personally reviewed and interpreted this imaging study as follows: Imaging: X-Ray Radiologist's impression: Exam: XR Left Shoulder Exam date and time: 06/16/2024 7:57 PM Age: 24 years old Clinical indication: Other: L shoulder injury TECHNIQUE: Imaging protocol: Radiologic exam of the left shoulder. Views: 2 or more views. COMPARISON: CT CHEST PE CTA 09/27/2023 7:28 PM FINDINGS: Bones/joints: There is no evidence of acute fracture.There is no evidence of malalignment or dislocation. Soft tissues: Normal. IMPRESSION: No acute findings. Dictated and Authenticated by: Anita Fowler MD. Quality:SDOH Health Related Social Needs: No Data to Display PFSH All Active Problems (Updated 06/16/24 @ 20:12 by KAYLEE Lawson) Rotator cuff arthropathy of left shoulder (Acute) Engages in vaping (Chronic) Community acquired bacterial pneumonia (Acute) Medical History No significant past medical history Surgical History H/O wisdom tooth extraction H/O arthroscopic knee surgery Social History Smoking/Tobacco Use Status: Current every day Tobacco Type: e-cigarettes Smoking risk assessment performed?: Yes Alcohol Intake: never Drug use: Never Substance use type: does not use Housing: apartment Do you feel safe at home: Yes Do you feel safe in your relationship?: Yes Additional Social history: Grew up in [place], came to [place] for college and stayed. Works as retail wireless sales representative at [employer]
--- NOTE | 2024-06-16 20:05 | DI.RAD_ITS ---
Exam(s) XR SHOULDER LT COMPLETE 2+V EXAM: XR SHOULDER LT COMPLETE 2+V CLINICAL HISTORY: L shoulder injury. TECHNIQUE: 2D digital imaging was performed. COMPARISON: No exams were available for comparison FINDINGS: Five views No evidence of fracture nor dislocation nor abnormal soft tissue densities. The subacromial space ap pears unremarkable. Glenohumeral joint appears un remarkable. Very slight offset of the AC joint ma y be present. Clavicle otherwise unremarkable. A chromium unremarkable. Bone density normal. No o sseous lesions. IMPRESSION: Glenohumeral joint and humeral head are unremarkable. Slight offset of the AC joint. DATA REPOSITORY: RADIATION DOSE DELIVERED:
[2024-06-16] MEDS: Acetaminophen 500 MG TAB 1000 MG PO (20:20)
[2024-06-16] MEDS: Ketorolac 10 MG TAB PO (20:21)
[2024-06-16 20:25] VITALS: BP 133/85; PULSE 89; RESP 14; O2SAT 99
--- NOTE | 2024-06-16 20:32 | DI.[facility]_ITS ---
PROCEDURE INFORMATION: Exam: XR Left Shoulder Exam date and time: 06/16/2024 7:57 PM Age: 24 years old Clinical indication: Other: L shoulder injury TECHNIQUE: Imaging protocol: Radiologic exam of the left shoulder. Views: 2 or more views. COMPARISON: CT CHEST PE CTA 09/27/2023 7:28 PM FINDINGS: Bones/joints: There is no evidence of acute fracture.There is no evidence of malalignment or dislocation. Soft tissues: Normal. IMPRESSION: No acute findings. Dictated and Authenticated by: Anita Fowler MD. Orderin Albert Armstrong MD
== END 2024-06-16 20:27 | disposition home or self-care (01) ==
PROVIDERS: Emergency Provider Physician Assistant
DX: M12.812 Other specific arthropathies, not elsewhere classified, left shoulder (principal); W19.XXXA Unspecified fall, initial encounter; Y93.23 Activity, snow (alpine) (downhill) skiing, snowboarding, sledding, tobogganing and snow tubing
CPT/HCPCS: 99283; 73030

== ENCOUNTER 2024-12-15 18:36 | Outpatient (CLI) | payer BC, SELFPAY ==
--- NOTE | 2024-12-15 | DI.RAD_ITS ---
Exam(s) XR WRIST LT COMPLETE EXAM: XR WRIST LT COMPLETE CLINICAL HISTORY: left wrist pain. TECHNIQUE: 2D digital imaging was performed. Three views. COMPARISON: No exams were available for comparison FINDINGS: BONES: Exam is somewhat limited by positioning. There is bony overlap at the radiocarpal joint. There is a question of a lucency in the distal radius could represent a nondisplaced fracture. No bony destructive lesion is seen. JOINTS: The carpal bones are normally aligned. SOFT TISSUE: Normal. IMPRESSION: Question a nondisplaced fracture at the distal radius. The preliminary [facility] report was reviewed. DATA REPOSITORY: RADIATION DOSE DELIVERED:
--- NOTE | 2024-12-15 20:08 | DI.[facility]_ITS ---
PROCEDURE INFORMATION: Exam: XR Left Wrist Exam date and time: 12/15/2024 6:47 PM Age: 24 years old Clinical indication: Pain; Wrist; Left TECHNIQUE: Imaging protocol: Radiologic exam of the left wrist. Views: 3 or more views. COMPARISON: No relevant prior studies available. FINDINGS: Bones/joints: A subtle lucency is identified involving the distal radius of the level of the radiocarpal joint. A nondisplaced fracture can not be completely excluded. Please correlate clinically. Soft tissues: Normal. IMPRESSION: Findings suspicious for a subtle nondisplaced fracture involving the distal radius. Dictated and Authenticated by: Moncho Adams MD. Orderin Nam Sims MD
== END 2024-12-15 18:56 ==
LOC: DI 18:37
PROVIDERS: Visit Provider Physician Assistant Medical
DX: M25.532 Pain in left wrist (principal)
CPT/HCPCS: 73110

== ENCOUNTER 2024-12-21 15:08 | Outpatient (CLI) | payer BC, SELFPAY ==
--- NOTE | 2024-12-21 15:04 | DI.RAD_ITS ---
Exam(s) XR WRIST LT LIMITED EXAM: XR WRIST LT LIMITED CLINICAL HISTORY: left wrist injury. TECHNIQUE: 2D digital imaging was performed. Two navicular views. COMPARISON: CR,XR XR WRIST LT COMPLETE from 12/15/2024 FINDINGS: BONES: No acute fracture is present. The navicular appears intact. No bony destructive lesion is seen. JOINTS: The carpal bones are normally aligned. SOFT TISSUE: Normal. IMPRESSION: No visible navicular fracture. DATA REPOSITORY: RADIATION DOSE DELIVERED:
== END 2024-12-21 15:09 | disposition home or self-care (01) ==
LOC: DIORS 15:08
PROVIDERS: Visit Provider Physician Assistant
DX: S69.92XA Unspecified injury of left wrist, hand and finger(s), initial encounter (principal)
CPT/HCPCS: 73100

== ENCOUNTER 2025-01-31 14:30 | Outpatient (CLI) | payer BC, SELFPAY ==
--- NOTE | 2025-01-31 14:00 | DI.RAD_ITS ---
Exam(s) XR WRIST LT LIMITED EXAM: XR WRIST LT LIMITED INDICATION: wrist pain. COMPARISON: CR,XR XR WRIST LT COMPLETE from 12/15/2024 CR XR WRIST LT LIMITED from 12/21/2024 TECHNIQUE: 2D digital imaging was performed. Two views. FINDINGS: No fracture is visualized. The carpal alignment appears normal. DATA REPOSITORY: RADIATION DOSE DELIVERED:
== END 2025-01-31 14:31 | disposition home or self-care (01) ==
LOC: DIORS 02-01 09:21
PROVIDERS: Visit Provider Physician Assistant
DX: S52.502A Unspecified fracture of the lower end of left radius, initial encounter for closed fracture (principal)
CPT/HCPCS: 73100

== ENCOUNTER → 2025-03-27 01:33 | Outpatient (CLI) | payer BC, SELFPAY ==
--- NOTE | 2025-03-27 07:00 | DI.MRI_ITS ---
Exam(s) MR UPPER JOINT LT WO EXAM: MR UPPER JOINT LT WO CLINICAL HISTORY: PAIN,lt scapholunate ligament tear,[id number]. TECHNIQUE: Multiplanar multisequence MRI was performed. COMPARISON: Comparison x-ray examination is 01/31/2025. FINDINGS: There is mild patient motion artifact. BONES: There is no evidence of a fracture. There is mild marrow edema seen in the distal hamate. No fracture is seen. This may represent a contusion. JOINTS: The radiocarpal joint is unremarkable. The carpal joints are unremarkable. TENDONS: Flexors: Unremarkable. Extensors: Unremarkable. MUSCLES: Unremarkable. MEDIAN NERVE: Unremarkable on this noncontrast examination. ULNAR NERVE: Unremarkable on this noncontrast examination. SOFT TISSUES: There is a 5 x 4 mm ganglion cyst associated with the pisotriquetral joint inferiorly. LIGAMENTS: Unremarkable. TRIANGULAR FIBROCARTILAGE: Unremarkable. OTHER: IMPRESSION: 1. Examination limited by patient motion artifact. 2. No definite evidence of a scapholunate ligament tear. 3. Mild marrow edema seen in the distal hamate which may represent a contusion. No evidence of a fracture. 4. 5 x 4 mm ganglion cyst associated with the pisotriquetral joint. DATA REPOSITORY:
== END ==
LOC: DI 01:33
PROVIDERS: Visit Provider Student in an Organized Health Care Education/Training Program
DX: S63.8X2A Sprain of other part of left wrist and hand, initial encounter (principal); M67.49 Ganglion, multiple sites; X58.XXXA Exposure to other specified factors, initial encounter
CPT/HCPCS: 73221